=== PATIENT | female | born 1985 | race Caucasian/White ===

== ENCOUNTER 2018-10-07 22:27 | Emergency (ER) | payer MEDICAID ==
[2018-10-07 23:24] VITALS: BP 152/91; PULSE 72
--- NOTE | 2018-10-07 23:35 | EDM.PDOC ---
ED HPI GENERAL MEDICAL PROBLEM - General Chief Complaint: ENT Problem Stated Complaint: RIGHT BOTTOM TOOTHACHE Time Seen by Provider: 10/07/18 23:16 Source of Information: Reports: Patient History Limitations: Reports: No Limitations - History of Present Illness INITIAL COMMENTS - FREE TEXT/NARRATIVE: chief complaint: dental pain This is a 32 year old female presents to ER for pain control. reports she was seen on Friday in Urgent Care, started on antibiotics, has been taking over the counter orajel, tylenol and motrin without much relief. has appointment schedule with Dental Clinic at 10 am. reports tooth is too painful to sleep. no other concerns. Onset: Gradual Duration: Day(s):, Constant Location: Reports: Other (right lower molar) Quality: Reports: Ache, Sharp, Throbbing Severity: Moderate Improves with: Reports: Cold Therapy Worsens with: Reports: None Associated Symptoms: Reports: No Other Symptoms Treatments DEVELOPMENT ARCHITECT: Reports: Acetaminophen, NSAIDS right lower Pain Score (Numeric/FACES): 10 - Related Data Allergies Allergy/AdvReac Type Severity Reaction Status Date / Time No Known Allergies Allergy Verified 10/07/18 23:21 Home Meds: Home Meds Fluticasone Propionate [Flonase] 16 gm NS DAILY 05/17/16 [History] Pnv with Ca,No.72/Iron/Fa [Pnv Plus Multivit Tab] 1 each PO DAILY 05/17 [History] Past Medical History HEENT History: Reports: Sinusitis Other HEENT History: allergy and increased sinus pressure with Other Genitourinary History: UTI 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: Musculoskeletal History: Reports: Back Pain, Chronic Neurological History: Reports: Migraines Other Neuro History: occasional - Past Surgical History HEENT Surgical History: Reports: Oral Surgery Female Surgical History: Reports: None Neurological Surgical History: Reports: None Social & Family History - Family History Respiratory: Reports: COPD Endocrine/Metabolic: Reports: Diabetes, type II Oncologic: Reports: Lung - Caffeine Use Caffeine Use: Reports: None Other Caffeine Use: 2 pops a day ED ROS ENT - Review of Systems Review Of Systems: See Below Constitutional: Reports: Other (dental pain) HEENT: Reports: Dental Pain Respiratory: Reports: No Symptoms Cardiovascular: Reports: No Symptoms Musculoskeletal: Reports: No Symptoms Skin: Reports: No Symptoms Neurological: Reports: No Symptoms ED EXAM, ENT - Physical Exam Exam: See Below Exam Limited By: No Limitations General Appearance: Alert, WD/WN, No Apparent Distress Mouth/Throat: Normal Gums, Normal Lips, Normal Oropharynx, Dental Pain (right lower molar with silver cap, tooth is painful to touch. gums with inflammation) , Dental Tenderness Head: Atraumatic, Normocephalic Neck: Normal Inspection, Supple, Non-Tender Respiratory/Chest: No Respiratory Distress Neurological: Alert, Oriented, No Motor/Sensory Deficits Psychiatric: Normal Affect, Normal Mood Skin: Warm, Dry, Intact, Normal Color, No Rash Lymphatic: No Adenopathy Course - Vital Signs Last Recorded V/S: Last Vital Signs Temp 35.9 C 10/07/18 23:22 Pulse 72 10/07/18 23:22 Resp 19 10/07/18 23:22 BP 152/91 H 10/07/18 23:22 Pulse Ox 99 10/07/18 23:22 - Re-Assessments/Exams Free Text/Narrative Re-Assessment/Exam: 10/07/18 advise to continue medication will give script for Hydrocodone 5-325 mg po every 4 to 6 hours as needed for pain, may add tylenol 325mg or motrin for additional pain control keep am Dental appointment agree with plan of care Departure - Departure Time of Disposition: 23:32 Disposition: Home, Self-Care 01 Condition: Good Clinical Impression: Infected tooth - Discharge Information *PRESCRIPTION DRUG MONITORING PROGRAM REVIEWED*: No *COPY OF PRESCRIPTION DRUG MONITORING REPORT IN PATIENT CHERELLE: No Instructions: Dental Abscess, [id number] Referrals: Carly Sheppard CNM [Primary Care Provider] - Forms: ED Department Discharge Care Plan Goals: Dental Pain -Hydrocodone 5-325mg take one with one Tylenol 325 mg every 4 to 6 hours as needed for pain -continue antibiotics for dental infection -keep Dental Appointment for 10 am tomorrow. Return to ER for any increased pain,fever, facial swelling, rash or any concerns. - Problem List & Annotations (1) Infected tooth SNOMED Code(s): 327633013 Code(s): K04.7 - PERIAPICAL ABSCESS WITHOUT SINUS Status: Acute Priority : High Current Visit: Yes - Problem List Review Problem List Initiated/Reviewed/Updated: Yes - Assessment/Plan Plan: Dental Pain -Hydrocodone 5-325mg take one with one Tylenol 325 mg every 4 to 6 hours as needed for pain -continue antibiotics for dental infection -keep Dental Appointment for 10 am tomorrow. Return to ER for any increased pain,fever, facial swelling, rash or any concerns.
== END 2018-10-07 23:44 | disposition home or self-care (01) ==
LOC: JP.ED 22:27
DX: K04.7 Periapical abscess without sinus (principal); Z79.899 Other long term (current) drug therapy
CPT/HCPCS: 99282

== ENCOUNTER 2021-02-09 23:42 | Emergency (ER) | payer BC, MEDICAID ==
[2021-02-10 00:01] VITALS: BP 143/84; PULSE 103
--- NOTE | 2021-02-10 01:09 | EDM.PDOC ---
ED HPI GENERAL MEDICAL PROBLEM - General Chief Complaint: ENT Problem Stated Complaint: JAW PAIN Time Seen by Provider: 02/10/21 00:51 Source of Information: Reports: Patient History Limitations: Reports: No Limitations - History of Present Illness INITIAL COMMENTS - FREE TEXT/NARRATIVE: chief complaint- Dental pain x 3 days This is a 35 year old female presents to the ER for evaluation of 3 days of dental pain- came in tonight because could no longer stand the pain. She had dental extractions of two molar on the right lower jaw over a year ago, now the area is painful to touch, pain with movement of jaw and neck. denies any fever or chills. denies throat pain, has seasonal allergies. denies cough. Onset: Gradual Onset Date: 02/07/21 Duration: Day(s): Location: Reports: Other (right lower jaw) Quality: Reports: Ache, Sharp Severity: Severe Improves with: Reports: Cold Therapy Worsens with: Reports: Movement Associated Symptoms: Reports: No Other Symptoms Treatments FIELD CROP GROWER: Reports: Acetaminophen, NSAIDS Right Jaw Pain Score (Numeric/FACES): 9 - Related Data Allergies Allergy/AdvReac Type Severity Reaction Status Date / Time No Known Allergies Allergy Verified 02/09/21 23:57 Home Meds: Home Meds Fluticasone Propionate [Flonase] 16 gm NS DAILY PRN 05/17/16 [History] Past Medical History HEENT History: Reports: Sinusitis Other HEENT History: allergy and increased sinus pressure with Other Genitourinary History: 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: Musculoskeletal History: Reports: Back Pain, Chronic Neurological History: Reports: Migraines Other Neuro History: occasional Psychiatric History: Reports: Depression, PTSD - Past Surgical History Head Surgeries/Procedures: Reports: None HEENT Surgical History: Reports: Oral Surgery Female Surgical History: Reports: None Neurological Surgical History: Reports: None Musculoskeletal Surgical History: Reports: None Social & Family History - Family History Respiratory: Reports: COPD Endocrine/Metabolic: Reports: Diabetes, type II Oncologic: Reports: Lung - Tobacco Use Tobacco Use Status *Q: Current Some Day Tobacco User Years of Tobacco use: 20 Packs/Tins Daily: 0.5 - Caffeine Use Caffeine Use: Reports: Coffee, Energy Drinks, Soda Other Caffeine Use: 2 pops a day - Recreational Drug Use Recreational Drug Use: No ED ROS ENT - Review of Systems Review Of Systems: See Below Constitutional: Reports: Other (right gum and jaw pain for 3 days) HEENT: Reports: Dental Pain Respiratory: Reports: No Symptoms Cardiovascular: Reports: No Symptoms Skin: Reports: No Symptoms Neurological: Reports: No Symptoms Psychiatric: Reports: Hallucinations Hematologic/Lymphatic: Reports: No Symptoms Immunologic: Reports: No Symptoms ED EXAM, ENT - Physical Exam Exam: See Below Exam Limited By: No Limitations General Appearance: Alert, WD/WN, Moderate Distress, Other (neat and well groomed. pleasant. ) Eye Exam: Bilateral Eye: Normal Inspection, PERRL Ears: Normal External Exam, Normal Canal, Hearing Grossly Normal, Normal TMs Nose: Normal Inspection, Normal Mucousa, No Blood, Clear Rhinorrhea Mouth/Throat: Normal Teeth, Dental Pain (right lower jaw), Dental Tenderness (severe pain with palpation of right lower gum. area is red and firm. right lower molars absent), Gum Swelling Head: Atraumatic, Normocephalic Neck: Normal Inspection, Supple, Full Range of Motion, Lymphadenopathy (R) (pain with palpation of right upper neck) Respiratory/Chest: No Respiratory Distress Neurological: Alert, Oriented, Normal Cognition Psychiatric: Normal Affect, Normal Mood Skin: Warm, Dry, Intact, Normal Color, No Rash Lymphatic: No Adenopathy Course - Vital Signs Last Recorded V/S: Last Vital Signs Temp 98.1 F 02/09/21 23:54 Pulse 103 H 02/09/21 23:54 Resp 16 02/09/21 23:54 BP 143/84 H 02/09/21 23:54 Pulse Ox 97 02/09/21 23:54 Departure - Departure Time of Disposition: 01:09 Disposition: Home, Self-Care 01 Condition: Good Clinical Impression: Pain, dental - Discharge Information *PRESCRIPTION DRUG MONITORING PROGRAM REVIEWED*: Not Applicable *COPY OF PRESCRIPTION DRUG MONITORING REPORT IN PATIENT CHERELLE: Not Applicable Instructions: Dental Pain, [id number] Referrals: Carly Sheppard CNM [Primary Care Provider] - Forms: ED Department Discharge Care Plan Goals: Dental pain -Penicillin one tablet 4 times a day til gone -Motrin 600mg po every 6 hours as needed for pain- has at home -Tylenol 650 mg po every 4 hours as needed fro pain-has at home -Hydrocodone 5-325 mg one every 6 hours as needed for acute pain -soft diet -follow up with Dental Clinic or Primary Care on Friday -return to ER for any fever, chills, nausea, vomiting, facial swelling, uncontrolled pain or any concerns. Sepsis Event Note (ED) - Evaluation Sepsis Screening Result: No Definite Risk - Focused Exam Vital Signs: Vital Signs Temp Pulse Resp BP Pulse Ox 02/09/21 23:54 98.1 F 103 H 16 143/84 H 97 - Problem List & Annotations (1) Pain, dental SNOMED Code(s): 58112180 Code(s): K08.89 - OTHER SPECIFIED DISORDERS OF TEETH AND SUPPORTING STRUCTURES Status: Acute Priority: High Current Visit: Yes - Problem List Review Problem List Initiated/Reviewed/Updated: Yes - Assessment/Plan Plan: Dental pain -Penicillin one tablet 4 times a day til gone -Motrin 600mg po every 6 hours as needed for pain- has at home -Tylenol 650 mg po every 4 hours as needed fro pain-has at home -Hydrocodone 5-325 mg one every 6 hours as needed for acute pain -soft diet -follow up with Dental Clinic or Primary Care on Friday -return to ER for any fever, chills, nausea, vomiting, facial swelling, uncontrolled pain or any concerns.
== END 2021-02-10 01:16 | disposition home or self-care (01) ==
LOC: JP.ED 23:42
DX: K08.89 Other specified disorders of teeth and supporting structures (principal); Z72.0 Tobacco use
CPT/HCPCS: 99282